=== PATIENT | female | born 1985 | race African-American/Black ===

== ENCOUNTER 2016-08-10 16:46 | Emergency (ER) | payer OTHER ==
[~2016-08-10] VITALS: Ht 167.6 cm; Wt 95.0 kg
[~2016-08-10 16:46] MED LIST: BUSP15TA70 PO; ETONMIS VAGRING
[2016-08-10 17:26] VITALS: TEMP 37.2; Ht 167.6 cm; Wt 95.0 kg
--- NOTE | 2016-08-10 18:20 | DIAGNOSTIC IMAGING REPORT ---
RIGHT ANKLE 3 VIEWS HISTORY: RIGHT ANKLE PAIN AFTER FALL Right COMPARISON: None. FINDINGS: There is no fracture or dislocation. Mild lateral soft tissue swelling. No radiopaque foreign bodies. IMPRESSION: No fractures. Electronically signed by: Evens Eisenberg M.D. 08/10/2016 6:19 PM Dictated Date/Time: 08/10/2016 6:17 PM
[2016-08-10] MEDS ORDERED: BUSP-8 PO (18:36)
[2016-08-10] MEDS ORDERED: TRAZ100T29 PO (18:37)
[2016-08-10] MEDS ORDERED: PRZ1 PO (18:37)
[2016-08-10] MEDS ORDERED: CYM/60 PO (18:37)
--- NOTE | 2016-08-10 18:57 | EMERGENCY ROOM VISIT NOTE ---
ED Visit Note First contact with patient: 18:22 CHIEF COMPLAINT: Right ankle injury this afternoon HISTORY OF PRESENT ILLNESS: Patient is a 31-year-old -[place] female who presents to emergency department for evaluation of a right ankle injury. She states that she missed 2 steps and fell, sustaining an inversion injury to the ankle. She felt and heard a popping sound. She notes pain and swelling on the lateral aspect of her ankle. She is able to bear weight but it is painful. She reports a remote history of ankle fractures. She denies any knee or foot pain. Patient was seen at [facility] and wrapped with an José Miguel wrap and given crutches. They were unable to perform x-rays there. REVIEW OF SYSTEMS: Review of systems as per HPI. All other systems reviewed were negative. At least 6 systems reviewed. PMH: Electronic medical records are reviewed and summarized as above/below. See Problem List. SOCIAL HISTORY: Patient lives at home with her significant other. Nonsmoker. She is employed. PHYSICAL EXAM: Vital Signs: Reviewed Nurse's notes. MENTAL STATUS: Alert, oriented, and cooperative. The right ankle is swollen and tender over the lateral aspect but the skin is intact and there is no ligamentous instability. No pain over the 5th metatarsal or fibular head. Lisfranc joint is negative. There is no deformity. The foot and toes are warm and well-perfused. Sensation to pain and light touch is intact. EMERGENCY DEPARTMENT COURSE: X-ray reveals no fracture, only the soft tissue swelling. A compression sleeve and gel splint were applied to the ankle under my direction and the position was satisfactory. Patient has crutches at home that she can use. Supportive care measures were discussed. She was given a note to be out of work for 2 days. Differential diagnosis include foot verses ankle sprain/fracture, contusion, dislocation. ] RIGHT ANKLE 3 VIEWS HISTORY: RIGHT ANKLE PAIN AFTER FALL Right COMPARISON: None. FINDINGS: There is no fracture or dislocation. Mild lateral soft tissue swelling. No radiopaque foreign bodies. IMPRESSION: No fractures. Problem List Medical Problems: (1) Alcohol abuse Status: Chronic (2) Anxiety Status: Chronic (3) Depression Status: Chronic (4) Hypertension Status: Chronic (5) Precordial chest pain Status: Resolved (6) Suicidal ideation Status: Resolved Current/Historical Medications Scheduled Buspirone Hcl (Buspirone Hcl), 10 MG PO BID Duloxetine HCl (Cymbalta), 60 MG PO DAILY Prazosin HCl (Prazosin HCl), 2 MG PO HS Scheduled PRN Trazodone Hcl (Trazodone), 100 MG PO HS PRN for Insomnia Allergies Coded Allergies: No Known Allergies (Unverified , 04/30/16) Vital Signs Date Time Temp Pulse Resp B/P Pulse Ox O2 Delivery O2 Flow Rate FiO2 08/10/16 19:09 90 18 152/108 98 08/10/16 19:05 90 18 152/108 98 Room Air 08/10/16 17:26 37.2 90 16 150/108 98 Room Air Departure Information Impression Primary Impression: Right ankle sprain Referrals [facility] (PCP) Patient Instructions My [facility] Additional Instructions Ibuprofen(Motrin, Advil) may be used for fever or pain. Use 600mg every six hours as needed. Take with food. Avoid using more than 2400mg in a 24 hour period. Do not use 2400mg per day for more than three consecutive days without physician direction. Prolonged inappropriate use can lead to stomach upset or ulcers. This medication can be taken if you need to drive, work, or perform activities which may be dangerous when taking narcotic pain medication. (AND/OR) Acetaminophen(Tylenol) may be used for fever or pain. Use 1000mg every six hours as needed. Avoid using more than 3000mg in a 24 hour period. This medication can be taken if you need to drive, work, or perform activities which may be dangerous when taking narcotic pain medication. Ice compresses for 20 minutes at a time four times daily for 2-3 days. Use the gel splint and crutches as instructed. Rest and elevate your injury. Continue current medications. Return to the ER immediately for any numbness, tingling, severe pain, extreme swelling in the extremity or as needed. Followup with your family doctor or orthopedic surgery if no improvement in 5-7 days.
[2016-08-10 19:09] VITALS: BP 152/108; PULSE 90; O2SAT 98
== END 2016-08-10 19:09 | disposition home or self-care (01) ==
LOC: C.EDB 16:47 → C.EDD 19:09
DX: S93.401A Sprain of unspecified ligament of right ankle, initial encounter (principal); I10 Essential (primary) hypertension; F32.9 Major depressive disorder, single episode, unspecified; F41.9 Anxiety disorder, unspecified; Z79.899 Other long term (current) drug therapy; W10.9XXA Fall (on) (from) unspecified stairs and steps, initial encounter; Y99.8 Other external cause status

== ENCOUNTER 2016-09-24 00:57 | Inpatient (IN) | payer OTHER ==
[~2016-09-24] VITALS: Ht 170.2 cm; Wt 97.4 kg
[~2016-09-24 00:57] MED LIST changes: +BUSP-8 PO; -BUSP15TA70 PO; +CYM/60 PO; -ETONMIS VAGRING; +PRZ1 PO; +TRAZ100T29 PO
[2016-09-24] MEDS ORDERED: SODIUM CHLORIDE 0.9% 1000ML 1,000 ML IV STA (01:15)
[2016-09-24] MEDS ORDERED: SODIUM CHLORIDE 0.9% 1000ML 1,000 ML IV ONE (01:15)
--- NOTE | 2016-09-24 01:24 | EMERGENCY ROOM VISIT NOTE ---
History Report prepared by [place]: Earnest Enrique Under the Supervision of: Dr. Shabbir Diamond M.D. First contact with patient: 01:11 Chief Complaint: OVERDOSE (INTENTIONAL) Stated Complaint: OVERDOSE OF HYDROXINE History of Present Illness The patient is a 31 year old female who presents to the Emergency Room with complaints of an intentional overdose that occurred 20 minutes ago. The patient took an estimated 55 pills of her Hydroxyzine prescription that she takes for her anxiety. Each pill was 10 mg. The patient states that out of the 180 pills, only 2 were missing. She said she took about a handful. She did not vomit. She did not take any other medications, drugs, or alcohol. She denies any nausea or drowsiness. She was about to take a second handful when she was stopped by her . She cut herself 5 months ago. That was the only time she has tried to hurt herself in the past. Her only complaint is that is thirsty. Denies any aspirin or Tylenol use. Denies feeling sleepy at this point Source of History: patient Onset: 20 minutes ago Position: other (global) Symptom Intensity: ~ 55 pills Quality: other (overdose) Timing: constant Associated Symptoms: No nausea, No vomiting Note: She denies any drowsiness. She is thirsty. Review of Systems See HPI for pertinent positives & negatives. A total of 10 systems reviewed and were otherwise negative. Past Medical & Surgical Medical Problems: (1) Alcohol abuse (2) Anxiety (3) Depression (4) Hypertension (5) Precordial chest pain (6) Suicidal ideation Old medical records were reviewed. Nurse's notes were reviewed and I agree with. Family History FH: cancer FH: diabetes mellitus FH: hypertension Social History Smoking Status: Never Smoker Alcohol Use: heavy Drug Use: none Marital Status: in relationship Housing Status: lives with significant other Occupation Status: employed Current/Historical Medications Scheduled Buspirone Hcl (Buspirone Hcl), 10 MG PO QAM Buspirone Hcl (Buspirone Hcl), 30 MG PO QAM Duloxetine HCl (Cymbalta), 60 MG PO DAILY Lisinopril (Zestril), 5 MG PO DAILY Prazosin HCl (Prazosin HCl), 2 MG PO HS Scheduled PRN Hydroxyzine Hcl (Atarax), 10-20 MG PO TID PRN for Anxiety Trazodone Hcl (Trazodone), 100 MG PO HS PRN for Insomnia Allergies Coded Allergies: No Known Allergies (Unverified , 09/24/16) Physical Exam Vital Signs Date Time Temp Pulse Resp B/P Pulse Ox O2 Delivery O2 Flow Rate FiO2 09/24/16 05:18 106 09/24/16 05:00 109 18 97 Room Air 09/24/16 04:30 115 20 97 Room Air 09/24/16 04:00 113 20 97 Room Air 09/24/16 03:33 120/70 09/24/16 03:10 110 20 148/96 98 Room Air 09/24/16 02:09 110 18 150/99 99 Room Air 09/24/16 01:08 120 09/24/16 01:03 37.0 108 18 171/115 99 Room Air Physical Exam General: Non ill appearing young female. Awake, alert, and oriented x3. Normal thought process. No agitation or tremor. Well developed well nourished in no acute distress, breathing comfortably on room air. Normal speech. HEENT: Normal cephalic atraumatic. Pupils are equal round and reactive to light. Sclerae anicteric. No nystagmus. Extraocular movements are intact. Oropharynx is pink with moist mucous membranes. No swelling of the mouth lips or tongue. Neck: Supple with a midline trachea. No meningeal signs or stiffness, no JVD or bruits. No Stridor. Chest: Clear to auscultation bilaterally. No wheezes or rhonchi. No increased work of breathing. Heart: regular rate and rhythm. Abdomen: Soft nontender, nondistended without rebound guarding or rigidity. Extremities: No cyanosis clubbing or edema. No calf tenderness or assymetry Spine/Back. Non tender to palpation. No CVA tenderness Skin: Good turgor without rashes. Neurologic exam: Cranial nerves two through 12 are intact. Motor and sensation are intact and symmetrical throughout. No tremor. Psychologic exam: Suicidal ideation, normal thought process and affect. Medical Decision & Procedures Laboratory Results 09/24/16 01:35 Red Blood Count 4.27, Mean Corpuscular Volume 83.8, Mean Corpuscular Hemoglobin 29.3, Mean Corpuscular Hemoglobin Concent 34.9, Mean Platelet Volume 9.3, Neutrophils (%) (Auto) 56.4, Lymphocytes (%) (Auto) 34.4, Monocytes (%) (Auto) 7.4, Eosinophils (%) (Auto) 1.0, Basophils (%) (Auto) 0.4, Neutrophils # (Auto) 5.58, Lymphocytes # (Auto) 3.40, Monocytes # (Auto) 0.73, Eosinophils # (Auto) 0.10, Basophils # (Auto) 0.04 09/24/16 01:35 Test 09/24/16 01:18 09/24/16 01:35 Urine Color YELLOW Urine Appearance CLEAR (CLEAR) Urine pH 7.5 (4.5-7.5) Urine Specific [place] 1.017 (1.000-1.030) Urine Protein NEG (NEG) Urine Glucose (UA) NEG (NEG) Urine Ketones NEG (NEG) Urine Occult Blood TRACE (NEG) Urine Nitrite NEG (NEG) Urine Bilirubin NEG (NEG) Urine Urobilinogen NEG (NEG) Urine Leukocyte Esterase NEG (NEG) Urine WBC (Auto) 1-5 /hpf (0-5) Urine RBC (Auto) 5-10 /hpf (0-4) Urine Hyaline Casts (Auto) 1-5 /lpf (0-5) Urine Epithelial Cells (Auto) 10-20 /lpf (0-5) Urine Bacteria (Auto) NEG (NEG) Urine Opiates Screen NEG (NEG) Urine Methadone, Qualitative NEG (NEG) Urine Barbiturates NEG (NEG) Urine Phencyclidine (PCP) Level NEG (NEG) Ur Amphetamine/Methamphetamine NEG (NEG) MDMA (Ecstasy) Screen NEG (NEG) Urine Benzodiazepines Screen NEG (NEG) Urine Cocaine Metabolite NEG (NEG) Urine Marijuana (THC) NEG (NEG) White Blood Count 9.89 K/uL (4.8-10.8) Red Blood Count 4.27 M/uL (4.2-5.4) Hemoglobin 12.5 g/dL (12.0-16.0) Hematocrit 35.8 % (37-47) Mean Corpuscular Volume 83.8 fL (80-100) Mean Corpuscular Hemoglobin 29.3 pg (25-34) Mean Corpuscular Hemoglobin Concent 34.9 g/dl (32-36) Platelet Count 336 K/uL (130-400) Mean Platelet Volume 9.3 fL (7.4-10.4) Neutrophils (%) (Auto) 56.4 % Lymphocytes (%) (Auto) 34.4 % Monocytes (%) (Auto) 7.4 % Eosinophils (%) (Auto) 1.0 % Basophils (%) (Auto) 0.4 % Neutrophils # (Auto) 5.58 K/uL (1.4-6.5) Lymphocytes # (Auto) 3.40 K/uL (1.2-3.4) Monocytes # (Auto) 0.73 K/uL (0.11-0.59) Eosinophils # (Auto) 0.10 K/uL (0-0.5) Basophils # (Auto) 0.04 K/uL (0-0.2) RDW Standard Deviation 42.8 fL (36.4-46.3) RDW Coefficient of Variation 14.0 % (11.5-14.5) Immature Granulocyte % (Auto) 0.4 % Immature Granulocyte # (Auto) 0.04 K/uL (0.00-0.02) Prothrombin Time 9.4 SECONDS (9.0-12.0) Prothromb Time International Ratio 0.9 (0.9-1.1) Activated Partial Thromboplast Time 27.3 SECONDS (21.0-31.0) Partial Thromboplastin Ratio 1.1 Anion Gap 8.0 mmol/L (3-11) Est Creatinine Clear Calc Drug Dose 115.4 ml/min Estimated GFR () 104.3 Estimated GFR (Non- 90.0 BUN/Creatinine Ratio 10.6 (10-20) Calcium Level 8.5 mg/dl (8.5-10.1) Total Bilirubin 0.2 mg/dl (0.2-1) Direct Bilirubin < 0.1 mg/dl (0-0.2) Aspartate Amino Transf (AST/SGOT) 18 U/L (15-37) Alanine Aminotransferase (ALT/SGPT) 27 U/L (12-78) Alkaline Phosphatase 111 U/L (45-117) Total Creatine Kinase 261 U/L (26-192) Creatine Kinase MB 1.2 ng/ml (0.5-3.6) Creatine Kinase MB Ratio 0.5 (0-3.0) Total Protein 7.3 gm/dl (6.4-8.2) Albumin 3.5 gm/dl (3.4-5.0) Lipase 140 U/L (73-393) Human Chorionic Gonadotropin, Qual NEG (NEG) Salicylates Level < 1.7 mg/dl (2.8-20) Acetaminophen Level < 2 ug/ml (10-30) Ethyl Alcohol mg/dL < 3.0 mg/dl (0-3) Laboratory studies as stated above per my review. Medications Administered Medications (Trade) Dose Ordered Sig/Ghada Route Start Time Stop Time Status Last Admin Dose Admin Sodium Chloride 1,000 ml @ 999 mls/hr Q1H1M STAT IV 09/24/16 01:15 09/24/16 02:15 DC 09/24/16 01:44 999 MLS/HR Sodium Chloride (Nss 1000ml) 1,000 ml @ 150 mls/hr Q6H40M ONCE IV 09/24/16 01:15 09/24/16 07:54 09/24/16 01:44 150 MLS/HR ECG Indication: toxicologic Rate (beats per minute): 101 Rhythm: sinus tachycardia Findings: other (normal intervals, no QRS prolongation) Comparison ECG Date: 08 Jun 2016 Change: no significant change (Rate increased, but other than that nothing significiant) ED Course 0111: Past medical records reviewed. The patient was evaluated in room C3, and a complete history and physical examination were performed. 0115: Sodium Chloride 1000 ml @ 150 mls/hr IV, Sodium Chloride 1000 ml @ 999 mls /hr IV 0134: I spoke with poison control at this time. They did not recommend a gastric decontamination. They recommended supportive care, Ativan if needed, and an increased QRS bicarb. 0227: I reassessed the patient at this time. She is resting comfortably. 0320: Poison control called again at this time. They said that she should be observed for 6 hours before discharged. 0328: The patient is mildly tachycardic at this time, but otherwise she is stable. She is asymptomatic. 0512: The patient is still resting comfortably and showing no signs of abnormal symptoms. 0650: The patient is not tachycardic and does not have any neurological symptoms. 0730: The patient was signed out to Dr. Flores at the change in shifts. Medical Decision Differentials include overdose, electrolyte or metabolic abnormality, toxicologic process, depression, and suicidal ideation. This patient comes in as described above she had an intentional overdose. She took this about 20 minutes prior to arrival she appears well she is only mildly tachycardic by her estimate she took hydralazine 10 mg and took about 50 of them. We counted the bottle and there were 50 missing. The patient looks well and does not appear to be sleepy. She's only mildly tachycardic but otherwise stable vital signs. I discussed the case with the poison center felt that she was just supportive care at this point. She was observed in the ER and they recommended we watch her for 6 hours or so. Her aspirin Tylenol levels are negative. She's no acute electrolyte or metabolic abnormalities and has nothing to suggest coingestions. I reassessed her frequently. She has remained stable. Her QTC and QRS intervals are not elevated. She's had no agitation or neurologic defects. She remained stable during her observation. She'll be signed out at shift change Dr. Trejo with a psychiatric consultation pending. Impression Primary Impression: Overdose Additional Impressions: Depression Suicidal ideation Scribe Attestation The scribe's documentation has been prepared under my direction and personally reviewed by me in its entirety. I confirm that the note above accurately reflects all work, treatment, procedures, and medical decision making performed by me. Departure Information Dispostion Still a Patient Referrals [facility] (PCP) Patient Instructions My [facility] Problem Qualifiers
[2016-09-24 01:49] LABS: BASO % 0.4 %; BASO ABS # 0.04 K/uL (0-0.2); COMPLETE YES; HEMATOCRIT 35.8 % (37-47); IG% 0.4 %; LYMPH % 34.4 %; MEAN CELL VOLUME 83.8 fL (80-100); MEAN CORPUSCULAR HEMOGLOBIN 29.3 pg (25-34); MEAN CORPUSCULAR HGB CONC 34.9 g/dl (32-36); MEAN PLATELET VOLUME 9.3 fL (7.4-10.4); MONO % 7.4 %; NEUT % 56.4 %; PLATELET COUNT 336 K/uL (130-400); RED BLOOD COUNT 4.27 M/uL (4.2-5.4); WHITE BLOOD COUNT 9.89 K/uL (4.8-10.8)
[2016-09-24] MEDS ORDERED: BUSP-8 PO (01:59)
[2016-09-24] MEDS ORDERED: BUSP30TA2 PO (01:59)
[2016-09-24] MEDS ORDERED: HYDR-389 PO (02:00)
[2016-09-24] MEDS ORDERED: LISI-729 PO (02:00)
[2016-09-24 02:02] LABS: INR 0.9 (0.9-1.1); PARTIAL THROMBOPLASTIN RATIO 1.1; PROTHROMBIN TIME (PATIENT) 9.4 SECONDS (9.0-12.0)
[2016-09-24 02:06] LABS: ALT/SGPT 27 U/L (12-78); AST/SGOT 18 U/L (15-37); BLOOD UREA NITROGEN 9 mg/dl (7-18); BUN/CREATININE RATIO 10.6 (10-20); CALCIUM 8.5 mg/dl (8.5-10.1); CARBON DIOXIDE 27 mmol/L (21-32); CHLORIDE 108 mmol/L (98-107); CREATININE 0.87 mg/dl (0.60-1.20); GLUCOSE 117 mg/dl (70-99); POTASSIUM 3.6 mmol/L (3.5-5.1); SODIUM 143 mmol/L (136-145)
[2016-09-24 02:07] LABS: PREG INTERNAL NEGATIVE QC NEG CLEAR BACKGROUND; PREG INTERNAL POSITIVE QC POS CONTROL LINE
[2016-09-24 02:11] LABS: ALKALINE PHOSPHATASE 111 U/L (45-117); CKMB/CK RATIO 0.5 (0-3.0)
[2016-09-24 02:46] LABS: URINE APPEARANCE CLEAR (CLEAR); URINE BILIRUBIN NEG (NEG); URINE COLOR YELLOW; URINE NITRITE NEG (NEG); URINE PH 7.5 (4.5-7.5); URINE SPECIFIC GRAVITY 1.017 (1.000-1.030); UROBILINOGEN NEG (NEG)
[2016-09-24 02:47] LABS: MANUAL MICROSCOPIC REQUIRED? NO; REVIEW REQ? NO
[2016-09-24 03:03] LABS: BENZODIAZEPINE, URINE NEG (NEG); COCAINE,URINE NEG (NEG); PHENCYCLIDINE, URINE NEG (NEG)
[2016-09-24 03:20] LABS: ACETAMINOPHEN < 2 ug/ml (10-30)
[2016-09-24 14:46] VITALS: O2SAT 98
[2016-09-24] MEDS ORDERED: NURSING VERBAL MED ORDER ONE (15:00)
[2016-09-24] MEDS ORDERED: hydrOXYzine HCL 25 MG TAB PO PRN ×2 (15:00)
[2016-09-24] MEDS ORDERED: ALUMINUM/MAGNESIUM SUSP 30 ML UDC PO PRN (15:00)
[2016-09-24] MEDS ORDERED: MAGNESIUM HYDROXIDE SUSP 30 ML UDC PO PRN (15:00)
[2016-09-24] MEDS ORDERED: BISMUTH SUBSALICYLATE PER ML OMNICELL CHARGE PO PRN (15:00)
[2016-09-24] MEDS ORDERED: SODIUM CHLORIDE 0.65% NA SOLN 45 ML (OCEAN) PRN (15:00)
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
[2016-09-24] MEDS ORDERED: TRAZODONE HCL 100 MG TAB PO PRN (15:45)
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
[2016-09-24 16:52] VITALS: BP 145/98; PULSE 96; TEMP 36.3; Ht 170.2 cm; Wt 97.4 kg
[2016-09-24 20:46] VITALS: BP 147/104; PULSE 94; TEMP 36.7
[2016-09-24] MEDS: TRAZODONE HCL 50 MG TAB PO PRN (21:11)
[2016-09-24] MEDS ORDERED: PRAZOSIN HCL 1 MG CAP PO SCH (22:00)
[2016-09-25] MEDS: ACETAMINOPHEN 325 MG TAB PO PRN (00:29)
[2016-09-25 06:37] VITALS: BP_SYST 124; BP_SYST 132; BP_DIAS 82; BP_DIAS 85; PULSE 102; PULSE 105; TEMP 36.9
[2016-09-25] MEDS: DULOXETINE HCL 60 MG CAP PO SCH (08:56)
[2016-09-25] MEDS ORDERED: LISINOPRIL 5 MG TAB PO SCH (09:00)
[2016-09-25 09:24] VITALS: BP 133/84; PULSE 94; TEMP 36.8
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
[2016-09-25 13:35] VITALS: BP 153/95; PULSE 99; TEMP 36.6
[2016-09-25] MEDS: LISINOPRIL 5 MG TAB PO SCH (21:19)
[2016-09-26 06:38] VITALS: BP_SYST 122; BP_SYST 130; BP_DIAS 75; BP_DIAS 79; PULSE 89; PULSE 92; TEMP 37
[2016-09-26] MEDS: DULOXETINE HCL 60 MG CAP PO SCH (08:52)
--- NOTE | 2016-09-26 10:16 | Psychiatric Progress Notes ---
Progress Note Date of Service Sep 26, 2016. Interval History 31 yo female admitted voluntarily on 09/24 with severe depression, having overdosed on hydroxyzine after and argument with her . Chief Complaint "my anxiety is still pretty high". Subjective Patient was seen & assessed interval progress reviewed with Treatment Team. No med changes on admission, she has had some jitteriness/PEARSON related to higher than average BP as lisinopril just resumed. She states that she didn't sleep well last night but feels that the family meeting with her went well. No scores above a 3 on AWSS. Review of Systems Psych: denies symptoms other than stated above Constitutional: denied Cardiovascular: denied GI: denied Neurologic: denied Remainder of 10 body systems also reviewed and denied other than noted above. Sleep Information Total Hours of Sleep: 7.25 Meal Information Percent of Breakfast Consumed: 100 Percent of Lunch Consumed: 100 Percent of Dinner Consumed: 100 Mental Status Exam During interview pt is: alert and oriented, cooperative Appearance: appropriately dressed, appropriately groomed (long keven, some blue, lip piercing, multiple tattoos on b/l arms) Eye contact is: good Motor behavior is: steady gait & station, no abnormal motor movements Speech: normal in rate, rhythm & volume Affect: euthymic Mood is: depressed Thought process: goal directed, linear, logical Thought content: reality based without delusions Suicidal thought are: denied Homicidal thoughts are: denied Hallucinations: denies auditory, denies visual Cognition: memory grossly intact, attention grossly intact, language grossly intact Intelligence estimated to be: average Insight: fair Judgement: fair Impression No SI but ongoing anxiety which was main trigger, this is 3rd hospitalization and there were issues to process following family meeting as hasn't told parents about their relationship and patient was making dramatic statements about telling them. Didn't sleep well last hs. Plan (1) Overdose 09/25/16--s/p OD on 550mg hydroxyzine. Hold hydroxyzine. Work on coping skills and safety plan. Attend and participate in unit groups and therapy. Family meeting with . (2) Depression Continue duloxetine 60 mg daily, as patient states her mood was good up until 3 days ago when she had sex with a man, which triggered significant strain in her marriage. Continue prazosin and trazodone 50 mg daily at bedtime when necessary. Coordinate care with outpatient psychiatric prescriber, MINDA Ag, and with therapist Kayleigh Alex. -Family meeting with this afternoon - Recommend OP substance use counseling - Continue current meds. 09/26--titrate Cymbalta in favor of Buspar taper, patient did not request benzos- -outpatient providers do not plan to prescribe given ETOH use and recent OD (3) Alcohol abuse 09/25/16 The patient's AUDIT score and history suggests problematic drinking ( Zone III WHO). Brief intervention was offered and accepted. Intervention was greater than 5 min in length. Brief interventions include: 1. Assess Readiness to Quit, 2. Advise: Help Patient to Reduce or Abstain from Alcohol, 3. Agree: Set Specific, Feasible Goals, 4. Assist: Anticipate barriers, Problem-Solving Solutions. Social work to 5. Arrange: Referrals to appropriate treatment. Summary of intervention: The patient is in contemplation stage with regards to transtheoretical model of change. The patient is advised to decrease alcohol consumption due to depressant effects and risk of interactions with prescription medications. The patient agreed to consider to discuss this, recognizes that alcohol is a problem for her, and will be provided with recovery materials to continue to education self on how to cope with their condition without drinking. -Alcohol abuse is a long-standing problem, and her use repeatedly creeps up, she has been intoxicated each time she's attempted suicide, and it has caused problems in her relationship. Today reviewed the risks of ongoing alcohol use and the recommendations for abstinence. She may benefit from outpatient substance abuse treatment or a peer support group. 09/26/16 ETOH use and impact on mood will continue to be incorporated into outpatient treatment at [facility], plan is for additional couples counseling perhaps with an outside provider. (4) Obesity Encourage healthy diet and exercise. (5) Hypertension Continue home dose of lisinopril, and follow-up with PCP at [facility]. (6) Unprotected sex test negative. Pelvic exam performed in the ER and was normal. Cervical cultures have been sent. Will need follow up with [employer] after discharge. Discharge / Aftercare Planning Primary Care Physician: Name: [facility] Appointment Notes: As needed Psychiatrist: Name: Pati Mac Date of Appointment: Oct 08, 2016 Time of Appointment: 3:40pm Appointment Notes: also October 29 Therapist: Name: Gabby VelizRakesh Date of Appointment: Sep 30, 2016 Time of Appointment: 1pm Visit Code E&M Code: 74372 Inventory Assets Strengths: , employed Risk Factors Assessment : No /single/: No Health problems: Yes Mental Health Diagnoses: Yes Substance use disorders: Yes Previous attempt: Yes Previous psychiatric stay: Yes Hopelessness: No Smoker: No Protective Factors Assessment Buddhist beliefs: Yes : Yes Responsible for young children: No Employed: Yes Stable relationships: Yes Supportive family: Yes Good rapport with provider: Yes Data Vital Signs Last 24 Hrs: Date Time Temp Pulse Resp B/P Pulse Ox O2 Delivery O2 Flow Rate FiO2 09/26/16 06:38 37.0 89 16 130/75 92 122/79 09/25/16 13:35 36.6 99 18 153/95 Meds Administered Last 24 Hrs: Meds Administered (Past 24Hrs) Medications (Trade) Dose Ordered Sig/Ghada Route Start Time Stop Time Status Last Admin Dose Admin Acetaminophen (Tylenol Tab) 650 mg Q4H PRN PO 09/24/16 15:00 10/24/16 14:59 09/25/16 00:29 650 MG Duloxetine HCl (Cymbalta Cap) 60 mg DAILY PO 09/25/16 09:00 10/25/16 08:59 09/26/16 08:52 60 MG Prazosin HCl (Prazosin) 2 mg HS PO 09/24/16 22:00 09/25/16 10:43 DC 09/24/16 21:11 2 MG Buspirone HCl (Buspar Tab) 40 mg QAM PO 09/25/16 09:00 10/25/16 08:59 09/26/16 08:52 40 MG Trazodone HCl (Desyrel Tab) 50 mg HS PRN PO 09/24/16 22:00 10/24/16 21:59 09/24/16 21:11 50 MG Lisinopril (Zestril Tab) 5 mg HS PO 09/25/16 22:00 10/25/16 21:59 09/25/16 21:19 5 MG
[2016-09-26] MEDS ORDERED: DULOXETINE (CYMBALTA) 30 MG CAP PO ONE (11:00)
[2016-09-26 13:45] VITALS: BP 164/96; PULSE 96; TEMP 36.8
[2016-09-26] MEDS: METRONIDAZOLE 500 MG TAB PO SCH ×2 (13:55→21:20)
[2016-09-26] MEDS: ACETAMINOPHEN 325 MG TAB PO PRN (17:13)
[2016-09-26] MEDS: LISINOPRIL 5 MG TAB PO SCH (21:20)
[2016-09-26] MEDS: TRAZODONE HCL 50 MG TAB PO PRN (21:20)
[2016-09-27 00:50] LABS: CHLAMYDIA TRACH RNA*** NOT DETECTED (NOT DETECTED); GC (NEIS GONORRHOEAE)RNA** NOT DETECTED (NOT DETECTED)
[2016-09-27] MEDS: ACETAMINOPHEN 325 MG TAB PO PRN (06:10)
[2016-09-27 06:48] VITALS: BP_SYST 140; BP_SYST 142; BP_DIAS 102; BP_DIAS 89; PULSE 90; PULSE 91; TEMP 36.5
[2016-09-27] MEDS ORDERED: DULOXETINE HCL 60 MG CAP PO SCH (09:00)
[2016-09-27] MEDS ORDERED: DULOXETINE (CYMBALTA) 30 MG CAP PO SCH (09:00)
[2016-09-27] MEDS: METRONIDAZOLE 500 MG TAB PO SCH (09:07)
[2016-09-27 09:23] VITALS: BP 130/83; PULSE 91
[2016-09-27] MEDS ORDERED: CYM/30 PO (10:28)
[2016-09-27] MEDS ORDERED: MTR500 PO (10:28)
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
[2016-09-27] MEDS ORDERED: DESTROY THIS MEDICATION ONE (11:15)
== END 2016-09-27 13:05 | disposition home or self-care (01) | DRG 885 ==
LOC: EDBD 00:57 → C.EDC 00:58 → C.MHU 14:50
PROVIDERS: ADMIT Psychiatry & Neurology Psychiatry; ATTEND Psychiatry & Neurology Psychiatry
DX: F33.9 Major depressive disorder, recurrent, unspecified (principal); R45.851 Suicidal ideations; T43.592A Poisoning by other antipsychotics and neuroleptics, intentional self-harm, initial encounter; E66.9 Obesity, unspecified; I10 Essential (primary) hypertension; F10.10 Alcohol abuse, uncomplicated; N76.0 Acute vaginitis; Z68.33 Body mass index [BMI] 33.0-33.9, adult; Z72.51 High risk heterosexual behavior; Z79.899 Other long term (current) drug therapy